=== PATIENT | male | born 1970 | race Caucasian/White ===

== ENCOUNTER 2017-08-22 10:28 | Emergency (ER) | payer OTHER ==
[~2017-08-22] VITALS: Ht 177.8 cm; Wt 102.5 kg
[~2017-08-22 10:28] MED LIST: COSENTYX P150 MG/11; NUCYNTA ER50 MG PO; SYNTHROID50 MCG PO; TRAMADOL HCL E100 MG PO
== END 2017-08-22 21:26 | disposition home or self-care (01) ==
LOC: ER 10:28
DX: R10.13 Epigastric pain (principal); K29.70 Gastritis, unspecified, without bleeding; M62.838 Other muscle spasm

== ENCOUNTER → 2017-10-24 | Emergency (ER) | payer OTHER ==
[~2017-10-24] VITALS: Ht 177.8 cm; Wt 101.2 kg
[~2017-10-24] MED LIST changes: +LEVSIN/SL0.125 MG SL; +PHENERGAN25 MG PO; +ZANTAC300 MG PO
== END | disposition home or self-care (01) ==
LOC: ER 23:52
DX: K52.9 Noninfective gastroenteritis and colitis, unspecified (principal)

== ENCOUNTER 2019-07-01 11:11 | Emergency (ER) | payer OTHER ==
[~2019-07-01] VITALS: Ht 177.8 cm; Wt 109.8 kg
[2019-07-01] MEDS ORDERED: EUTHYROX75 MCG PO (12:44)
== END 2019-07-01 18:36 | disposition home or self-care (01) ==
LOC: ER 11:11
DX: R07.89 Other chest pain (principal)

== ENCOUNTER 2021-01-20 18:33 | Emergency (ER) | payer OTHER ==
[~2021-01-20] VITALS: Ht 177.8 cm; Wt 106.1 kg
[~2021-01-20 18:33] MED LIST changes: +EUTHYROX75 MCG PO
[2021-01-20] MEDS ORDERED: CIALIS5 MG (19:04)
[2021-01-20] MEDS ORDERED: SYNTHROID125 MCG (19:04)
[2021-01-20] MEDS ORDERED: DICLOFENAC SODI75 MG PO (21:55)
== END 2021-01-20 22:00 | disposition home or self-care (01) ==
LOC: ER 18:33
DX: R10.31 Right lower quadrant pain (principal)

== ENCOUNTER 2021-03-28 07:43 | Outpatient (CLI) | payer OTHER ==
[~2021-03-28 07:43] MED LIST changes: +CIALIS5 MG; +DICLOFENAC SODI75 MG PO; +SYNTHROID125 MCG
== END 2021-03-28 07:46 | disposition home or self-care (01) ==
LOC: RAD 07:43
PROVIDERS: ATTEND Orthopaedic Surgery Hand Surgery
DX: I10 Essential (primary) hypertension (principal); Z01.811 Encounter for preprocedural respiratory examination

== ENCOUNTER 2021-04-04 05:50 | Day surgery (SDC) | payer OTHER | END 2021-04-04 15:45 | disposition home or self-care (01) | LOC: CIR.AMB 05:50 | PROVIDERS: ATTEND Orthopaedic Surgery Hand Surgery | DX: M77.11 Lateral epicondylitis, right elbow (principal); Z20.822 Contact with and (suspected) exposure to COVID-19 ==

== ENCOUNTER 2021-07-27 08:58 | Emergency (ER) | payer OTHER ==
[~2021-07-27] VITALS: Ht 177.8 cm; Wt 106.6 kg
[2021-07-27] MEDS ORDERED: SYNTHROID175 MCG PO (09:05)
== END 2021-07-27 13:40 | disposition home or self-care (01) ==
LOC: ER 08:58
DX: G89.11 Acute pain due to trauma (principal); G44.319 Acute post-traumatic headache, not intractable; M54.2 Cervicalgia; Z03.818 Encounter for observation for suspected exposure to other biological agents ruled out

== ENCOUNTER 2022-05-02 09:46 | Outpatient (CLI) | payer OTHER ==
[~2022-05-02 09:46] MED LIST changes: +SYNTHROID175 MCG PO
== END 2022-05-02 09:50 | disposition home or self-care (01) ==
LOC: NUCLEAR 09:46
PROVIDERS: ATTEND Internal Medicine Pulmonary Disease
DX: Z13.6 Encounter for screening for cardiovascular disorders (principal)

== ENCOUNTER 2024-10-08 05:15 | Day surgery (SDC) | payer OTHER ==
[2024-09-30 10:02] VITALS: BP 130/90
[2024-09-30 11:41] LABS: PH,URINE 5.5 (5.0-8.0); URINE APPEARANCE Clear; URINE BILIRRUBIN Negative (NEGATIVE); URINE BLOOD Negative; URINE COLOR Yellow; URINE GLUCOSE Negative (NEGATIVE); URINE KETONE Negative (NEGATIVE); URINE LEUKOCYTE Negative; URINE NITRATE Negative; URINE PROTEIN Negative (NEGATIVE); URINE UROBILINOGEN 0.2 E.U./dl
[2024-09-30 11:45] LABS: URINE BACTERIA 6.1 uL (0.0-1933); URINE WBC 1.8 uL (0.0-23.2)
[2024-09-30 11:57] LABS: HEMATOCRIT 47.6 % (39.0-48.0); HEMOGLOBIN 15.9 g/dL (13-16.00); MEAN CELL VOLUME 91.5 fL (80.0-100.00); MEAN CORPUSCULAR HEMOGLOBIN 30.7 pg (27.00-32.0); MEAN CORPUSCULAR HGB CONC 33.5 g/dl (32.0-36.0); PLATELET COUNT 201 K/uL (150-450); RED CELL DISTRIBUTION WIDTH 13.3 % (11.5-14.5)
[2024-09-30 12:28] LABS: ALBUMIN 4.1 gm/dL (3.4-5.0); BILIRUBIN TOTAL 0.68 mg/dL (0.3-1.2); CALCIUM 9.1 mg/dL (8.5-10.1); CREATININE SERUM 1.18 mg/dL (0.70-1.30); GFR 63.86; GLOBULINA 3.3 G/DL (2.4-3.5); POTASSIUM 4.12 mEq/L (3.5-5.1); TOTAL PROTEIN 7.4 gm/dL (6.4-8.2)
[2024-09-30 12:44] LABS: URINE CAST 0.29 uL (0.0-1.40); URINE EPITHELIAL CELLS 1.2 uL (0.0-38.8); URINE RBC 0.5 uL (0.0-20.8)
[2024-09-30 13:59] LABS: INR 1.03; PARTIAL THROMBOPLASTIN TIME 26.3 SECONDS (22.0-34.0); PROTHROMBIN TIME 11.2 SECONDS (9.0-11.5)
[~2024-10-08] VITALS: Ht 177.8 cm; Wt 108.9 kg
[~2024-10-08 05:15] MED LIST changes: +TREMFYA
[2024-10-08] MEDS ORDERED: KETOROLAC TROMETHAMINE 30 MG VIAL ONE (07:24)
[2024-10-08] MEDS ORDERED: BUPIVACAINE HCL/MPF 0.5% 30ML VIAL ONE (07:24)
[2024-10-08] MEDS ORDERED: CEFAZOLIN SODIUM 1,000 MG VIAL ONE (07:25)
[2024-10-08] MEDS ORDERED: LIDOCAINE HCL 1%/EPINEPHRINE 20ML VIAL IJ ONE (07:25)
[2024-10-08] MEDS ORDERED: SUGAMMADEX SODIUM 200 MG/2 ML VIAL IV ONE (08:25)
[2024-10-08] MEDS ORDERED: MORPHINE SULFATE 4 MG/ML VIAL IV ONE (09:40)
[2024-10-08] MEDS ORDERED: ENALAPRILAT DIHYDRATE 1.25 MG/ML VIAL IV ONE (11:05)
== END 2024-10-08 16:40 | disposition home or self-care (01) ==
LOC: CIR.AMB 05:15
PROVIDERS: ATTEND Orthopaedic Surgery
DX: M75.111 Incomplete rotator cuff tear or rupture of right shoulder, not specified as traumatic (principal); M75.41 Impingement syndrome of right shoulder; M75.21 Bicipital tendinitis, right shoulder; M24.111 Other articular cartilage disorders, right shoulder; E03.8 Other specified hypothyroidism